=== PATIENT | female | born 2000 | race Caucasian/White ===

== ENCOUNTER 2023-11-03 09:51 | Emergency (ER) | payer MEDICAID ==
[~2023-11-03] VITALS: Ht 162.6 cm; Wt 61.0 kg
[2023-11-03 09:56] VITALS: TEMP 98.3; O2SAT 100
[2023-11-03 10:34] VITALS: BP 116/70; PULSE 79; RESP 16
[2023-11-03] MEDS ORDERED: IBUPROFEN 600MG TABLET PO STA (10:34)
[2023-11-03] MEDS ORDERED: IBUP-2029 MT (12:41)
== END 2023-11-03 23:58 | disposition home or self-care (01) ==
LOC: ER 09:51
DX: S09.90XA Unspecified injury of head, initial encounter (principal); M25.512 Pain in left shoulder; M54.2 Cervicalgia; Y04.0XXA Assault by unarmed brawl or fight, initial encounter; Y93.89 Activity, other specified; Y92.89 Other specified places as the place of occurrence of the external cause; Y99.8 Other external cause status
CPT/HCPCS: 70486; 73030; 81025; 99284